=== PATIENT | female | born 1970 | race Caucasian/White ===

== ENCOUNTER 2016-12-29 17:08 | Emergency (ER) | payer MEDICAID, SELFPAY ==
--- NOTE | 2016-12-29 17:49 | EDM.PDOC ---
ED HPI GENERAL MEDICAL PROBLEM - General Chief Complaint: General Stated Complaint: SORE THROAT/COUGH Time Seen by Provider: 12/29/16 17:28 Source of Information: Reports: Patient History Limitations: Reports: No limitations - History of Present Illness INITIAL COMMENTS - FREE TEXT/NARRATIVE: Leydi presents today with complaints of fever, chills, sore throat and body aches for 3 days. She reports exposure at work to influenza B. Onset Date: 12/27/16 Duration: Day(s): Quality: Reports: Ache Severity: mild Improves with: Reports: Other (She has tried ibuprofen and acetaminophen for her discomfort with minimal positive effects. ) Associated Symptoms: Reports: cough. 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, NSAIDS Throat Pain Score (Numeric/FACES): 7 - Related Data Allergies Allergy/AdvReac Type Severity Reaction Status Date / Time No Known Allergies Allergy Verified 07/14/14 09:17 Home Meds: Home Meds Gabapentin [Neurontin] 100 mg PO Q8HR PRN 12/10/13 [History] Hydrocodone/Acetaminophen [[place] 5-325] 5 - 325 mg PO Q4HR PRN 11/21/14 [History ] Ibuprofen 600 mg PO Q6H PRN 11/21/14 [History] Past Medical History [employer] History: Reports: - Infectious Disease History Infectious Disease History: Reports: Chicken pox - Past Surgical History Female Surgical History: Reports: section, Hysterectomy Social & Family History - Tobacco Use Smoking Status *Q: Current Every Day Smoker Years of Tobacco use: 20 Packs/Tins Daily: 1 Used Tobacco, but Quit: No Second Hand Smoke Exposure: No - Caffeine Use Caffeine Use: Reports: Coffee, Energy drinks, Soda, Tea - Alcohol Use Days Per Week of Alcohol Use: 7 Number of Drinks Per Day: 1 Total Drinks Per Week: 7 - Recreational Drug Use Recreational Drug Use: No ED ROS GENERAL - Review of Systems Review Of Systems: See Below Constitutional: Reports: fever, chills. Denies: malaise, weakness, night sweats , diaphoresis HEENT: Reports: Throat pain. Denies: Ear discharge, Ear pain, Eye pain, Hearing loss, Nosebleed, Nose pain, Sinus problem, Throat swelling, Vertigo Respiratory: Reports: Cough. Denies: Shortness of Breath, Wheezing, Sputum, Hemoptysis Cardiovascular: Denies: Chest pain, Dyspnea on exertion, Edema, Palpitations Endocrine: Reports: no symptoms GI/Abdominal: Reports: No symptoms. Denies: Abdominal pain, Constipation, Diarrhea, Difficulty swallowing, Nausea, Vomiting : Reports: no symptoms Musculoskeletal: Reports: other (Body aches, muscle aches to legs. ) Skin: Denies: pallor, diaphoresis, dryness, rash, erythema, wound Neurological: Denies: No Symptoms, Dizziness, Headache, Numbness, Syncope, Tingling, Weakness Hematologic/Lymphatic: Reports: no symptoms Immunologic: Reports: no symptoms ED EXAM, GENERAL - Physical Exam Exam: See Below Exam Limited By: No limitations General Appearance: alert, WD/WN, no apparent distress Eye Exam: bilateral eye: normal inspection, PERRL, other (pupils 2mm reactive bilaterally) Ears: hearing grossly normal. No: hearing loss Ear Exam: right ear: erythema, tenderness, TM dull, TM bulging, left ear: auricle normal, canal normal, TM normal Nose: normal inspection, normal mucosa, no blood. No: nasal tenderness, nasal swelling, nasal drainage Throat/Mouth: Normal inspection, Normal lips, Normal teeth, Normal gums, Normal voice, Other (erythema to oropharynx. ) Head: atraumatic, normocephalic Neck: normal inspection, supple, non-tender, full range of motion Respiratory/Chest: no respiratory distress, lungs clear, normal breath sounds, no accessory muscle use, chest non-tender. No: respiratory distress, crackles, rales, rhonchi, wheezing, stridor Cardiovascular: normal peripheral pulses, regular rate, rhythm, no edema, no gallop, no murmur, no rub Peripheral Pulses: 2+: radial (L), radial (R) GI/Abdominal: normal bowel sounds, soft, non tender, no organomegaly, no distention, no abnormal bruit, no mass Back Exam: normal inspection, full range of motion. No: CVA tenderness (R), CVA tenderness (L) Extremities: normal inspection, normal range of motion, non-tender, no pedal edema, normal capillary refill. No: pedal edema, joint swelling Neurological: alert, oriented, CN II-XII intact, normal cognition, normal gait, normal reflexes, no motor/sensory deficits Psychiatric: normal affect, normal mood Skin Exam: Warm, Dry, Intact, Normal color, No rash Lymphatic: no adenopathy Course - Vital Signs Last Recorded V/S: Last Vital Signs Temp 37.0 C 12/29/16 17:24 Pulse 100 12/29/16 17:24 Resp 18 12/29/16 17:24 BP 143/74 H 12/29/16 17:24 Pulse Ox 98 12/29/16 17:24 - Orders/Labs/Meds Orders: Active Orders 24 hr Category Date Time Status CULTURE STREP A CONFIRMATION [RM] Stat Lab 12/29/16 17:34 Results STREP SCRN A RAPID W CULT CONF [RM] Stat Lab 12/29/16 17:34 Results Swabs negative, patient notified. - Re-Assessments/Exams Free Text/Narrative Re-Assessment/Exam: 12/29/16 18:15 Patient status reviewed, all her questions answered, she is in agreement with plan. Departure - Departure Time of Disposition: 18:09 Disposition: Home, Self-Care 01 Condition: good Clinical Impression: Viral illness Instructions: Viral Respiratory Infection, [id number] Forms: ED Department Discharge Additional Instructions: You have a viral illness at this time. Drink plenty of fluids to keep yourself hydrated. You can also use acetaminophen 650mg by mouth every 4 to 6 hours or ibuprofen 600mg to 800mg by mouth three times a day for pain. You can purchase mucinex or guaifenesin over the counter and take 600mg PO twice per day to help with cough. Return to the ER for chest pain, difficulty breathing or any other urgent concerns. - My Orders Last 24 Hours: My Active Orders 12/29/16 17:34 CULTURE STREP A CONFIRMATION [RM] Stat STREP SCRN A RAPID W CULT CONF [RM] Stat - Assessment/Plan Last 24 Hours: My Active Orders 12/29/16 17:34 CULTURE STREP A CONFIRMATION [RM] Stat STREP SCRN A RAPID W CULT CONF [RM] Stat
[2016-12-29 17:55] VITALS: BP 143/74
== END 2016-12-29 18:23 | disposition home or self-care (01) ==
LOC: JP.ED 17:08
DX: B34.9 Viral infection, unspecified (principal); F17.210 Nicotine dependence, cigarettes, uncomplicated; Z79.899 Other long term (current) drug therapy
CPT/HCPCS: 87081; 87430; 87804; 99284

== ENCOUNTER 2017-05-27 19:04 | Emergency (ER) | payer MEDICAID ==
[2017-05-27 20:23] VITALS: BP 141/92
--- NOTE | 2017-05-27 21:05 | EDM.PDOC ---
ED HPI GENERAL MEDICAL PROBLEM - General Chief Complaint: Lower Extremity Injury/Pain Stated Complaint: LEFT ANKLE SWOLLEN Time Seen by Provider: 05/27/17 20:30 Source of Information: Reports: Patient History Limitations: Reports: No Limitations - History of Present Illness INITIAL COMMENTS - FREE TEXT/NARRATIVE: 46-year-old female with persistent lower left leg swelling for the past 3 weeks. She noticed it one morning when she was getting into a car, she felt a pain in her lower leg and looked down and she had swelling in her ankle and tib- fib area of the left leg. At times she had significant swelling and it has slowly improved but she was convinced by her children today to come in and be checked for a blood clot or other serious element. She's had no fever or chills. No significant trauma. No shortness of breath, fever, nausea vomiting, or systemic joint swelling. No rashes. Onset: Sudden (Noticed symptoms fairly suddenly 3 weeks ago) Location: Reports: Lower Extremity, Left Severity: Mild Associated Symptoms: Reports: No Other Symptoms Left Lower Leg Pain Score (Numeric/FACES): 7 - Related Data Allergies Allergy/AdvReac Type Severity Reaction Status Date / Time No Known Allergies Allergy Verified 05/27/17 20:37 Home Meds: Home Meds Ibuprofen 600 mg PO Q6H PRN 11/21/14 [History] Past Medical History [employer] History: Reports: Musculoskeletal History: Reports: Fracture Other Musculoskeletal History: foot fx Psychiatric History: Reports: Anxiety Hematologic History: Reports: Blood Transfusion(s) Dermatologic History: Reports: Other (See Below) Other Dermatologic History: rashes - Infectious Disease History Infectious Disease History: Reports: Chicken Pox - Past Surgical History Female Surgical History: Reports: Section, Hysterectomy Social & Family History - Tobacco Use Smoking Status *Q: Current Every Day Smoker Years of Tobacco use: 25 Packs/Tins Daily: 1 Used Tobacco, but Quit: No Second Hand Smoke Exposure: Yes - Caffeine Use Caffeine Use: Reports: Coffee, Energy Drinks, Soda, Tea - Alcohol Use Days Per Week of Alcohol Use: 2 Number of Drinks Per Day: 1 Total Drinks Per Week: 2 - Recreational Drug Use Recreational Drug Use: No Review of Systems - Review of Systems Review Of Systems: See Below Constitutional: Denies: Fever Respiratory: Denies: Shortness of Breath, Cough Cardiovascular: Denies: Chest Pain, Palpitations GI/Abdominal: Denies: Abdominal Pain Genitourinary: Reports: No Symptoms Skin: Denies: Rash Neurological: Reports: No Symptoms Psychiatric: Reports: No Symptoms ED EXAM, GENERAL - Physical Exam Exam: See Below Exam Limited By: No Limitations General Appearance: Alert, No Apparent Distress Respiratory/Chest: No Respiratory Distress, Lungs Clear Cardiovascular: Regular Rate, Rhythm Extremities: Other (Patient has diffuse swelling of the lower left leg to the ankle, no edema of the forefoot. Normal dorsalis pedis pulse. Some tenderness with palpation of the gastrocnemius and popliteal area of the leg. The right lower extremity has just a trace of pitting edema.) Neurological: Alert, Oriented Psychiatric: Normal Affect, Normal Mood Skin Exam: Warm, Dry Course - Vital Signs Last Recorded V/S: Last Vital Signs Temp 96.7 F 05/27/17 20:44 Pulse 96 05/27/17 20:44 Resp 16 05/27/17 20:44 BP 141/92 H 05/27/17 20:44 Pulse Ox 98 05/27/17 20:44 - Orders/Labs/Meds Orders: Active Orders 24 hr Category Date Time Status VL Duplex Lwr Ext Veins Ltd Lt [US] Stat Exams 05/27/17 21:04 Taken Labs: Laboratory Tests 05/27/17 05/27/17 05/27/17 Range/Units 21:14 21:14 21:14 WBC 10.3 (4.5-11.0) K/uL RBC 4.39 (3.30-5.50) M/uL Hgb 12.6 D (12.0-15.0) g/dL Hct 37.3 (36.0-48.0) % MCV 85 (80-98) fL MCH 29 (27-31) pg MCHC 34 (32-36) % Plt Count 214 (150-400) K/uL Neut % (Auto) 63 (36-66) % Lymph % (Auto) 25 (24-44) % [place] % (Auto) 10 H (2-6) % Eos % (Auto) 2 (2-4) % Baso % (Auto) 1 (0-1) % D-Dimer, Quantitative 113 (0.0-400.0) ng/mL Sodium 141 (140-148) mmol/L Potassium 3.8 (3.6-5.2) mmol/L Chloride 104 (100-108) mmol/L Carbon Dioxide 28 (21-32) mmol/L Anion Gap 9.3 (5.0-14.0) mmol/L BUN 21 H D (7-18) mg/dL Creatinine 1.0 (0.6-1.0) mg/dL Est Cr Clr Drug Dosing 61.99 mL/min Estimated GFR (MDRD) > 60 (>60) Glucose 102 (74-106) mg/dL Calcium 8.7 (8.5-10.1) mg/dL Total Bilirubin 0.3 (0.2-1.0) mg/dL AST 27 D (15-37) U/L ALT 47 D (12-78) U/L Alkaline Phosphatase 91 (46-116) U/L Total Protein 7.0 (6.4-8.2) g/dL Albumin 3.8 (3.4-5.0) g/dL Globulin 3.2 (2.3-3.5) g/dL Albumin/Globulin Ratio 1.2 (1.2-2.2) - Re-Assessments/Exams Free Text/Narrative Re-Assessment/Exam: 05/28/17 06:12 CBC, CMP and d-dimer were obtained. These were all reassuring, but we also obtained an ultrasound of the lower left leg and there was no sonographic evidence of DVT. I suspect this patient had a soft tissue strain, possibly muscle or interosseous ligament causing the persistent swelling. I recommended support stockings on a regular basis over the next week to 2 weeks, anti- inflammatories, elevating the leg when able and rechecking with her primary provider if not improving in 5-10 days. Departure - Departure Time of Disposition: 22:13 Disposition: Home, Self-Care 01 Condition: Good Clinical Impression: Unilateral edema of lower extremity, Leg pain, left - Discharge Information Instructions: Edema Referrals: PCP,None [Primary Care Provider] - Forms: ED Department Discharge Care Plan Goals: Wear compression stockings to the legs while active, placing them on in the morning. Consider rechecking in 5-10 days with your primary provider if not improving satisfactorily. - My Orders Last 24 Hours: My Active Orders 05/27/17 21:04 VL Duplex Lwr Ext Veins Ltd Lt [US] Stat - Assessment/Plan Last 24 Hours: My Active Orders 05/27/17 21:04 VL Duplex Lwr Ext Veins Ltd Lt [US] Stat
--- NOTE | 2017-05-28 09:05 | US ---
VL Duplex Lwr Ext Veins Ltd Lt HISTORY: Pain FINDINGS: The deep veins of the left lower extremity demonstrate normal augmentation and compressibil ity. No evidence for deep venous thrombosis. IMPRESSION: Normal lower extremity venous Doppler study.
== END 2017-05-27 22:13 | disposition home or self-care (01) ==
LOC: JP.ED 19:04
DX: R60.0 Localized edema (principal); M79.605 Pain in left leg; F41.9 Anxiety disorder, unspecified; F17.210 Nicotine dependence, cigarettes, uncomplicated; Z90.710 Acquired absence of both cervix and uterus
CPT/HCPCS: 36415; 80053; 85025; 85379; 93971-26-LT; 93971-LT; 99283; 99284-25

== ENCOUNTER 2021-12-30 14:43 | Emergency (ER) | payer MEDICAID ==
[2021-12-30 15:05] VITALS: BP 140/85; PULSE 95
== END 2021-12-30 16:15 | disposition home or self-care (01) ==
LOC: JP.ED 14:43
DX: S83.92XA Sprain of unspecified site of left knee, initial encounter (principal); S76.312A Strain of muscle, fascia and tendon of the posterior muscle group at thigh level, left thigh, initial encounter; F17.210 Nicotine dependence, cigarettes, uncomplicated; Z90.710 Acquired absence of both cervix and uterus; W22.8XXA Striking against or struck by other objects, initial encounter
CPT/HCPCS: 99282; 99283

== ENCOUNTER 2022-10-12 04:19 | Emergency (ER) | payer MEDICAID ==
[2022-10-12 04:34] VITALS: BP 148/84; PULSE 89
[2022-10-12] MEDS ORDERED: Ketorolac 30 MG/ML SDV IM ONE (04:59)
[2022-10-12 06:08] LABS: CORONAVIRUS COVID-19 NAA NEGATIVE (NEGATIVE)
== END 2022-10-12 06:12 | disposition home or self-care (01) ==
LOC: JP.ED 04:19
DX: K08.89 Other specified disorders of teeth and supporting structures (principal); B34.9 Viral infection, unspecified; F17.210 Nicotine dependence, cigarettes, uncomplicated; Z86.16 Personal history of COVID-19; Z20.822 Contact with and (suspected) exposure to COVID-19
CPT/HCPCS: 0241U; 96372; 99283; J1885

== ENCOUNTER 2024-02-14 23:55 | Emergency (ER) | payer SELFPAY ==
[2024-02-15 00:32] VITALS: BP 146/84; PULSE 94
== END 2024-02-15 01:38 | disposition home or self-care (01) ==
LOC: JP.ED 23:55
DX: L03.115 Cellulitis of right lower limb (principal); F17.210 Nicotine dependence, cigarettes, uncomplicated; Z90.710 Acquired absence of both cervix and uterus; Z79.899 Other long term (current) drug therapy
CPT/HCPCS: 99281

== ENCOUNTER 2024-07-01 17:10 | Emergency (ER) | payer SELFPAY ==
[2024-07-01 17:21] VITALS: BP 194/123; PULSE 100
== END 2024-07-01 18:16 | disposition home or self-care (01) ==
LOC: JP.ED 17:10
DX: L03.115 Cellulitis of right lower limb (principal); Z86.16 Personal history of COVID-19; Z90.710 Acquired absence of both cervix and uterus; Z88.1 Allergy status to other antibiotic agents; Z88.6 Allergy status to analgesic agent
CPT/HCPCS: 87070; 87077; 87186; 87205; 99283